=== PATIENT | male | born 1985 | race Caucasian/White ===

== ENCOUNTER 2018-01-12 21:58 | Emergency (ER) | payer SELFPAY ==
[2018-01-12 22:15] VITALS: BP 125/66; TEMP 98.6; BMI 34.4
[2018-01-12 22:54] VITALS: PULSE 98
--- NOTE | 2018-01-12 23:16 | PDOC ---
History of Present Illness - General Chief Complaint: Back Pain Stated Complaint: BACK PAIN Time Seen by Provider: 01/12/18 22:02 - History of Present Illness Initial Comments: 01/12/18 23:58 This 32-year-old man without significant past medical history presents with a one-day history of left sided lower back pain. Patient states that pain began when he lifted a case of bottled water earlier today. Since then, he is had pain on the left side of his lower back just above the pelvis; pain radiates to the left buttock but no pain/paresthesia/numbness in leg. No previous history of back pain or sciatica. He denies fall or any other acute trauma today or recently. No history of urinary retention or difficulty with bowel movements. No groin numbness. PMH No significant medical or surgical illnesses Medications None No known ALLERGIES Past History - Past Medical History Allergies/Adverse Reactions: Allergies Allergy/AdvReac Type Severity Reaction Status Date / Time No Known Allergies Allergy Verified 01/12/18 21:58 Home Medications: Ambulatory Orders Diclofenac Sodium [Voltaren -] 75 mg PO BID PRN #10 tablet. 01/12/18 Tizanidine HCl 2 mg PO TID PRN #10 tablet 01/12/18 COPD: No Other medical history: DENIES - Suicide/Smoking/Psychosocial Hx Smoking History: Never smoked Hx Alcohol Use: No Drug/Substance Use Hx: No Review of Systems - Review of Systems Able to Perform ROS?: Yes Comments:: 12 point review of systems is negative except for what is noted in the history of present illness *Physical Exam - Vital Signs Last Vital Signs Temp Pulse Resp BP Pulse Ox 98.6 F 98 H 18 125/66 99 01/12/18 21:58 01/12/18 21:58 01/12/18 21:58 01/12/18 21:58 01/12/18 21:58 - Physical Exam Comments: GENERAL: Adult male, alert and oriented 3 in mild distress secondary to left- sided lower back pain HEAD: Normal with no signs of trauma. EYES: PERRLA, EOMI, sclera anicteric, conjunctiva clear. ENT: Ears normal, nares patent, oropharynx clear without exudates. Dry mucous membranes. NECK: Normal range of motion, supple without lymphadenopathy, JVD, or masses. LUNGS: Breath sounds equal, clear to auscultation bilaterally. No wheezes, and no crackles. HEART:Regular rate and rhythm, normal S1 and S2 without murmur, rub or gallop. ABDOMEN:.normal bowel sounds No guarding,tenderness or rebound.No masses No distention. EXTREMITIES: Normal range of motion, no edema. No clubbing or cyanosis. No erythema, or tenderness. NEUROLOGICAL: Cranial nerves II through XII grossly intact. Normal speech. No focal neurological deficits. MUSCULOSKELETAL: Back mild tenderness to palpation left lower lumbar area, no CVA tenderness pain on bilateral straight leg raising, right greater than left at 30 SKIN: Warm, Dry, normal turgor, no rashes or lesions noted. Progress Note - Progress Note Progress Note: This 32-year-old male with no previous medical history and no history of back injury/pain presents with pain with movement and rest of the left lower lumbar region. There is no radiation into the buttock or leg. Exam as noted. No evidence of sciatica; motor/sensory/deep tendon reflexes are intact. Toradol 60 mg IM administered. Patient reported significant relief in his pain after Toradol IM. The patient has mild residual pain, especially movement but states that he can walk significantly better since the anti-inflammatory medication was given. The patient will be discharged with instructions to continue anti-inflammatory medications (diclofenac) as needed. 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 Also, for the next few days, the patient may need a muscle relaxant and prescription for tizanidine 2 mg up to 3 times a day (#10) will be transmitted to the pharmacy. Referral information for spinal surgeon () will be given to the patient. He should follow-up with if he has persistent pain *DC/Admit/Observation/Transfer Diagnosis at time of Disposition: Lumbosacral strain Qualifiers: Encounter type: initial encounter Qualified Code(s): S39.012A - Strain of muscle, fascia and tendon of lower back, initial encounter - Discharge Dispostion Disposition: HOME Condition at time of disposition: Stable - Prescriptions Prescriptions: Diclofenac Sodium [Voltaren -] 75 mg PO BID PRN #10 tablet.dr WAGNER Reason: Back Pain Tizanidine HCl 2 mg PO TID PRN #10 tablet PRN Reason: Muscle Spasms - Referrals Referrals: Mynor Fry MD [Staff Physician] - - Patient Instructions Printed Discharge Instructions: Low Back Pain Additional Instructions: Avoid strenuous activities for the next 3-4 days No work until January 16 Diclofenac 75 mg twice a day as needed for pain (take with food) Tizanidine 2 mg up to 3 times a day as needed for muscle spasm (this medication will make you sleepy) Follow-up with spinal doctor (Dr. Fry) if you have persistent low back pain Return to ER if you have severe pain/numbness/weakness of your leg - Post Discharge Activity Forms/Work/School Notes: Back to Work
[2018-01-12] MEDS ORDERED: KETOROLAC TROMETHAMINE 60 MG/2 ML VIAL ONE (23:30)
[2018-01-12] MEDS ORDERED: KETOROLAC TROMETHAMINE 60 MG/2 ML VIAL IM ONE (23:30)
== END 2018-01-13 00:50 | disposition home or self-care (01) ==
LOC: FER 21:58
PROC: 3E0233Z Introduction of Anti-inflammatory into Muscle, Percutaneous Approach (ICD-10-PCS; principal; 2018-01-12)
DX: S39.012A Strain of muscle, fascia and tendon of lower back, initial encounter (principal); X58.XXXA Exposure to other specified factors, initial encounter; Y93.89 Activity, other specified; Y92.9 Unspecified place or not applicable
CPT/HCPCS: 99283-25